=== PATIENT | male | born 2000 | race Caucasian/White ===

== ENCOUNTER 2021-06-20 15:22 | Emergency (ER) | payer MEDICAID ==
[~2021-06-20] VITALS: Ht 190.5 cm; Wt 92.7 kg
[2021-06-20 15:41] VITALS: BP 119/38
== END 2021-06-20 17:06 | disposition home or self-care (01) ==
LOC: ER 15:23
DX: S76.112A Strain of left quadriceps muscle, fascia and tendon, initial encounter (principal); M79.652 Pain in left thigh; X58.XXXA Exposure to other specified factors, initial encounter; Y93.89 Activity, other specified; Y92.89 Other specified places as the place of occurrence of the external cause; Y99.8 Other external cause status
CPT/HCPCS: 99283

== ENCOUNTER 2022-11-11 20:43 | Emergency (ER) | payer MEDICAID ==
[~2022-11-11] VITALS: Ht 190.5 cm; Wt 105.6 kg
[2022-11-11] MEDS ORDERED: CEPH-585 PO (22:50)
[2022-11-11] MEDS ORDERED: cephalexin 250mg capsule PO ONE (23:05)
[2022-11-11 23:08] VITALS: BP 120/60
== END 2022-11-11 23:09 | disposition home or self-care (01) ==
LOC: ER 20:44
DX: L03.115 Cellulitis of right lower limb (principal); Z88.6 Allergy status to analgesic agent
CPT/HCPCS: 99283

== ENCOUNTER 2025-03-10 16:31 | Outpatient (CLI) | payer MEDICAID ==
--- NOTE | 2025-03-10 18:09 | RADIOLOGY REPORT ---
CLINICAL HISTORY: CERVICOGENIC HEADACHE TECHNIQUE: MRI of the cervical spine was performed without gadolinium. COMPARISON: None FINDINGS: The alignment and bone marrow signal of the cervical spine are normal. The vertebral body heights and intervertebral disc spaces are maintained. The cervical spinal cord is normal in caliber with no evidence for compression or abnormal signal. There is no significant disc herniation or facet / uncovertebral hypertrophy. The central canal and neural foramina are widely patent. IMPRESSION: Unremarkable MRI of the cervical spine.
== END 2025-03-10 23:59 | disposition home or self-care (01) ==
LOC: MRI02 16:31
PROVIDERS: ATTEND Physician Assistant Medical
DX: G44.86 Cervicogenic headache (principal)
CPT/HCPCS: 72141